=== PATIENT | male | born 1980 | race Caucasian/White ===

== ENCOUNTER 2019-05-27 09:40 | Emergency (ER) | payer SELFPAY ==
[~2019-05-27] VITALS: Ht 172.7 cm; Wt 79.4 kg
[~2019-05-27 09:40] MED LIST: CIPR-17 PO; HYDR-3583 PO; METO50TA7 PO; MTR250T PO
[2019-05-27] MEDS ORDERED: AMOX500C2 PO (10:22)
--- NOTE | 2019-05-27 10:22 | ED EENT ---
History of Present Illness General Chief Complaint: Dental Problems/Pain Stated Complaint: DENTAL PAIN Nursing Triage Note: AMB TO ROOM C/O DENTAL PAIN ON AND OFF FOR LAST YEAR LAST SEVERAL DAY'S HAS INCREASE IN PAIN. THINKS HE MAY NEED A ANTIBIOTIC. CALLED AND MADE APPOINTMENT WITH DENTAL CLINIC IN [place]. Source: patient Exam Limitations: no limitations History of Present Illness Date Seen by Provider: May 27, 2019 Time Seen by Provider: 10:18 Initial Comments ER with dental pain left lower intermittently for years secondary to a broken tooth, past few days he's had increase in pain with a swollen lymph node left- sided mandible, also an earache. Has an appointment with a dentist in [place]. Timing/Duration: other Severity: mild, moderate Location: dental Prearrival Treatment: no prearrival treatment Associated Symptoms: tooth pain Allergies and Home Medications Allergies Coded Allergies: No Known Drug Allergies (Unverified , 02/11/11) Home Medications Ciprofloxacin 500 Mg Tbmp.24hr, 1 TAB PO BID, (Reported) Hydrocodone Bit/Acetaminophen 1 Tab Tab, 1 EA PO Q 4 - 6 HR PRN, (Reported) 1- 2 tabs every 4 hrs as needed for pain Metoprolol Succinate 50 Mg Tab.sr.24h, 1 EACH PO BID, (Reported) Metronidazole 250 Mg Tab, 1 EACH PO TID, (Reported) Patient Home Medication List Home Medication List Reviewed: Yes Review of Systems Review of Systems Constitutional: see HPI Eyes: No Symptoms Reported Ears: No Symptoms Reported Nose: no symptoms reported Mouth: see HPI, pain Throat: no symptoms reported Respiratory: no symptoms reported Cardiovascular: no symptoms reported Musculoskeletal: no symptoms reported Past Mciplng-Uucccs-Exqztc Hx Patient Social History Alcohol Use: Occasionally Uses Alcohol Beverage of Choice: Beer Recreational Drug Use: No Smoking Status: Current Everyday Smoker Type Used: Cigarettes Recent Foreign Travel: No Contact w/Someone Who Travel: No Recent Infectious Disease Expo: No Past Medical History Reproductive Disorders: No Physical Exam Vital Signs Vital Signs - First Documented 05/27/19 09:43 Temp 96.5 Pulse 72 Resp 18 B/P (MAP) 131/107 (115) Pulse Ox 97 O2 Delivery Room Air Height, Weight, BMI Height: 5'8.00" Weight: 175lbs. oz. [id number]; BMI Method:Stated General Appearance: WD/WN, no apparent distress Eyes: bilateral eye normal inspection, bilateral eye PERRL, bilateral eye EOMI Ears: bilateral ear auricle normal, bilateral ear canal normal, bilateral ear TM normal Mouth/Throat: pharynx normal, other (there is a fracture to left lower, no fluctuant abscess. No swelling to the mandible no palpable adenopathy.) Neck: non-tender, full range of motion Neurologic/Psychiatric: alert, normal mood/affect, oriented x 3 Skin: normal color, warm/dry Progress/Results/Core Measures Results/Orders Vital Signs/I&O 05/27/19 09:43 Temp 96.5 Pulse 72 Resp 18 B/P (MAP) 131/107 (115) Pulse Ox 97 O2 Delivery Room Air Blood Pressure Mean: 115 Departure Impression Primary Impression: Dental caries Additional Impression: Fractured tooth Qualified Codes: S02.5XXA - Fracture of tooth (traumatic), initial encounter for closed fracture Disposition: HOME, SELF-CARE Condition: Stable Departure-Patient Inst. Decision time for Depature: 10:20 Referrals: NO,LOCAL PHYSICIAN (PCP/Family) Primary Care Physician Patient Instructions: Fractured Tooth (DC), Dental Pain (DC) Scripts Amoxicillin (Amoxicillin) 500 Mg Capsule 500 MG PO TID, #21 CAP 0 Refills Prov: TERESA REYES APRN 05/27/19 TERESA REYES APRN May 27, 2019 10:22
[2019-05-27] MEDS ORDERED: LIDOCAINE 2% VISCOUS 15 ML UDC MM ONE (10:30)
[2019-05-27 10:41] VITALS: BP 131/100
[2019-05-28] MEDS ORDERED: CLIN300C11 PO (15:57)
[2019-05-28] MEDS ORDERED: ACHD5005 PO (15:57)
[2019-05-28] MEDS ORDERED: ONDA4TAB11 SL (16:52)
== END 2019-05-27 10:44 | disposition home or self-care (01) ==
LOC: EDUNIT# 09:40 → ER 09:41
DX: K02.9 Dental caries, unspecified (principal); K03.81 Cracked tooth; F17.210 Nicotine dependence, cigarettes, uncomplicated
CPT/HCPCS: 99282

== ENCOUNTER 2019-05-28 14:12 | Emergency (ER) | payer SELFPAY ==
[~2019-05-28] VITALS: Ht 180.3 cm; Wt 79.4 kg
[~2019-05-28 14:12] MED LIST changes: +AMOX500C2 PO
[2019-05-28] MEDS ORDERED: HURRICAINE EXT TUBE (BENZOCAINE) XX ONE (14:45)
[2019-05-28] MEDS ORDERED: LIDOCAINE 1% INJ 20 ML 20 ML VIAL INJ ONE (14:45)
[2019-05-28] MEDS ORDERED: ONDANSETRON 4 MG (ZOFRAN) ORAL DISSOLVE TAB SL ONE (14:45)
--- NOTE | 2019-05-28 15:56 | ED EENT ---
History of Present Illness General Chief Complaint: Dental Problems/Pain Stated Complaint: TOOTH PAIN;SWELLING Nursing Triage Note: Pt to triage with c/o L sided dental swelling and pain. Pt reports having a broken tooth. Pt reports being seen in the ED yesterday for the same issue. Pt reports not being able to keep AB down and is experiencing vomiting. Pt face is visibly swollen on the L side. Source: patient Exam Limitations: no limitations History of Present Illness Date Seen by Provider: May 28, 2019 Time Seen by Provider: 14:35 Initial Comments This 39-year-old gentleman presents to the emergency room with complaints of left lower jaw pain and swelling. He has dental caries with presumed dental abscess. He was seen yesterday and started on amoxicillin. Symptoms have intensified. He now has marked swelling and extreme pain. He has not yet been able to establish with a dentist. He is afebrile. Allergies and Home Medications Allergies Coded Allergies: No Known Drug Allergies (Unverified , 02/11/11) Home Medications Amoxicillin 500 Mg Capsule, 500 MG PO TID Prescribed by: TERESA REYES on 05/27/19 1022 Ciprofloxacin 500 Mg Tbmp.24hr, 1 TAB PO BID, (Reported) Clindamycin HCl 300 Mg Capsule, 300 MG PO QID Prescribed by: GREGG LYLE on 05/28/19 1557 Hydrocodone Bit/Acetaminophen 1 Tab Tab, 1 EA PO Q 4 - 6 HR PRN, (Reported) 1- 2 tabs every 4 hrs as needed for pain Hydrocodone Bit/Acetaminophen 1 Tab Tab, 1-2 EACH PO Q6H PRN for PAIN-MODERATE Prescribed by: GREGG LYLE on 05/28/19 1557 Metoprolol Succinate 50 Mg Tab.sr.24h, 1 EACH PO BID, (Reported) Metronidazole 250 Mg Tab, 1 EACH PO TID, (Reported) Ondansetron 4 Mg Tab.rapdis, 4 MG SL Q4H PRN for NAUSEA/VOMITING Prescribed by: GREGG LYLE on 05/28/19 1652 Patient Home Medication List Home Medication List Reviewed: Yes Review of Systems Review of Systems Constitutional: no symptoms reported Eyes: No Symptoms Reported Ears: No Symptoms Reported Nose: no symptoms reported Mouth: see HPI Throat: no symptoms reported Respiratory: no symptoms reported Cardiovascular: no symptoms reported Musculoskeletal: no symptoms reported Skin: no symptoms reported Neurological: No Symptoms Reported Hematologic/Lymphatic: No Symptoms Reported Immunological/Allergic: no symptoms reported Past Dzpbirk-Lgvjuq-Gjyxir Hx Past Med/Social Hx: Reviewed and Corrections made Patient Social History Alcohol Use: Occasionally Uses Number of Drinks Today: AA Alcohol Beverage of Choice: Beer Recreational Drug Use: No Smoking Status: Current Everyday Smoker Type Used: Cigarettes 2nd Hand Smoke Exposure: Yes Recent Foreign Travel: No Contact w/Someone Who Travel: No Recent Infectious Disease Expo: No Recent Hopitalizations: Yes (SAME ABCESS) Physical Abuse: No Sexual Abuse: No Past Medical History Surgeries: No Respiratory: No Cardiac: No Neurological: No Reproductive Disorders: No Sexually Transmitted Disease: No Gastrointestinal: No Musculoskeletal: No Endocrine: No Cancer: No Psychosocial: No Blood Disorders: No Physical Exam Vital Signs Vital Signs - First Documented 05/28/19 14:15 Temp 98.5 Pulse 73 Resp 16 B/P (MAP) 141/97 (112) Pulse Ox 97 O2 Delivery Room Air Height, Weight, BMI Height: 5'11.00" Weight: 175lbs. oz. 79.416673gx; BMI Method:Stated General Appearance: WD/WN, mild distress Eyes: bilateral eye normal inspection, bilateral eye PERRL, bilateral eye EOMI Ears: bilateral ear auricle normal, bilateral ear canal normal, bilateral ear TM normal Nose: normal inspection; No active bleeding Mouth/Throat: other (marked swelling of the left lateral jawline with area of fluctuance near the painful tooth suspicious for abscess. No drainage at this time. 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 A nephrology alert block was performed with about 4 mL of lidocaine. Mucosal tissue was then injected for further local anesthetic. Scalpel was used to create a small incision about half a centimeter by 1 cm deep into the area of greatest fluctuance. Blood returned without any return of purulent material. Progress/Results/Core Measures Results/Orders My Orders Orders - GREGG VILA MD Lidocaine 1% Inj 20 Ml (Xylocaine 1% Inj (05/28/19 14:45) Benzocaine Extension Tube (Hurricaine Ex (05/28/19 14:45) Ondansetron Oral Dissolve Tab (Zofran (05/28/19 14:45) Clindamycin Injection (Cleocin Injection (05/28/19 16:00) Ketorolac Injection (Toradol Injection) (05/28/19 16:00) Medications Given in ED Current Medications Medications Dose Ordered Sig/Orin Route Start Time Stop Time Status Last Admin Dose Admin Benzocaine 1 ea ONCE ONCE XX 05/28/19 14:45 05/28/19 14:46 DC 05/28/19 15:35 1 EA Clindamycin Phosphate 600 mg ONCE ONCE IM 05/28/19 16:00 05/28/19 16:01 DC 05/28/19 16:16 600 MG Ketorolac Tromethamine 30 mg ONCE ONCE IM 05/28/19 16:00 05/28/19 16:01 DC 05/28/19 16:06 30 MG Lidocaine HCl 20 ml ONCE ONCE INJ 05/28/19 14:45 05/28/19 14:46 DC 05/28/19 15:34 20 ML Ondansetron HCl 8 mg ONCE ONCE SL 05/28/19 14:45 05/28/19 14:46 DC 05/28/19 15:10 8 MG Vital Signs/I&O 05/28/19 05/28/19 14:15 16:37 Temp 98.5 98.5 Pulse 73 74 Resp 16 16 B/P (MAP) 141/97 (112) 123/83 (96) Pulse Ox 97 96 O2 Delivery Room Air Room Air Blood Pressure Mean: 112 Progress Progress Note : Progress Note Patient was seen and examined. There was concern about a possible abscess based on exam. Patient was anesthetized with Hurricaine spray followed by a infra- alveolar nerve block. Similar lidocaine was also injected locally. A number 10 scalpel was then used to puncture the mucosal membrane into the area of greatest fluctuance. Unfortunately, only blood returned. No drainage of purulent material resulted. Bleeding was controlled with suction and direct pressure with gauze. Patient was treated with a clindamycin injection and a Toradol injection. We assisted patient in making arrangements with the [facility] dental clinic. Departure Impression Primary Impression: Dental abscess Disposition: 01 HOME, SELF-CARE Condition: Improved Departure-Patient Inst. Decision time for Depature: 15:54 Referrals: NO,LOCAL PHYSICIAN (PCP/Family) Primary Care Physician Patient Instructions: Tooth Abscess (DC) Add. Discharge Instructions: Continue with amoxicillin as previously prescribed and add the clindamycin as prescribed. For primary pain control take ibuprofen up to 600 mg every 6 hours as needed. Add the hydrocodone as prescribed for pain not controlled by ibuprofen. You may continue to use gauze packings to control bleeding at the incision site. Please contact the dental clinic at the [facility] tomorrow at [phone]. They should be able to schedule an appointment for you Sunday or Sunday to see the dentist. Return to care if you have worsening symptoms including development of fever, escalating pain, etc. All discharge instructions reviewed with patient and/or family. Voiced understanding. Scripts Ondansetron (Ondansetron Odt) 4 Mg Tab.rapdis 4 MG SL Q4H PRN for NAUSEA/VOMITING, #10 TAB Prov: GREGG VILA MD 05/28/19 Hydrocodone Bit/Acetaminophen (Hydrocodone/Acetaminophen 5/325mg Tablet) 1 Tab Tab 1-2 EACH PO Q6H PRN for PAIN-MODERATE MDD 10, #20 TAB 0 Refills Prov: GREGG VILA MD 05/28/19 Clindamycin HCl (Clindamycin HCl) 300 Mg Capsule 300 MG PO QID, #40 CAP Prov: GREGG VILA MD 05/28/19 Copy Copies To 1: DRE SALAS JOSHUA T MD May 28, 2019 15:56
[2019-05-28] MEDS ORDERED: ACHD5005 PO (15:57)
[2019-05-28] MEDS ORDERED: CLIN300C11 PO (15:57)
[2019-05-28] MEDS ORDERED: KETOROLAC 30 MG/ML VIAL IM ONE (16:00)
[2019-05-28] MEDS ORDERED: CLINDAMYCIN 600 MG/4ML (CLEOCIN) VIAL IM ONE (16:00)
[2019-05-28 16:37] VITALS: BP 123/83
[2019-05-28] MEDS ORDERED: ONDA4TAB11 SL (16:52)
== END 2019-05-28 16:38 | disposition home or self-care (01) ==
LOC: EDUNIT# 14:12 → ER 14:13
DX: K04.7 Periapical abscess without sinus (principal); F17.210 Nicotine dependence, cigarettes, uncomplicated
CPT/HCPCS: 96372; 99284